=== PATIENT | male | born 1970 | race Hispanic/Latino ===

== ENCOUNTER 2016-11-23 12:41 | Emergency (ER) | payer MEDICAID ==
--- NOTE | 2016-11-23 12:50 | ED.REPORT ---
HPI-General Illness Date of Service Nov 23, 2016 ED Provider: Dr. Lamb. A 46 year old male presents to the ED from complaining of cough. Per nurse note, had concern for patient's swollen throat and twitching in the patient' s hands. Per patient's , the patient has had weakness and paralysis in upper extremities and face for the last 8 months that has been worked up by a doctor in [place], [place] at [facility]. Per , the patient is currently taking a new antibiotic, but no other medications. He does take calcium, omega 3, and D3 supplements. The patient's denies any pertinent surgical history and denies that the patient drinks or smokes. Nursing Notes Stated Complaint: COUGH Nursing Notes Reviewed: Yes Allergies: Coded Allergies: No Known Allergies (Unverified , 11/23/16) General Time Seen by MD: 12:50 Chief Complaint Cough Hx Obtained From: Spouse Unable to Obtain Hx: Patient condition Arrived By: Walk-in Onset Occurred: Onset unknown Symptom Duration: Duration unknown Recent Healthcare: No recent doctor visit Similar Sx Previous: No Past Medical History Past Medical History Patient has had weakness and paralysis in his upper extremities and face for the last 8 months. Past Surgical History none reported. Social History Alcohol Use: Denies alcohol use Review of Systems Full Review of Systems Respiratory: Reports: Non-productive cough Neurologic: Reports: Weakness (Weakness and paralysis in face and upper extremities. ) Complete sys rev & neg: except as marked. Physical Exam Vital Signs Vital Signs Date Time Temp Pulse Resp B/P Pulse Ox O2 Delivery O2 Flow Rate FiO2 11/23/16 15:57 71 16 111/93 97 Room Air 11/23/16 13:20 36.7 67 14 135/89 98 Room Air 11/23/16 12:54 36.7 67 14 135/89 98 Room Air Initial VS: Reviewed ENT: Mucous membranes moist Neck: Supple Respiratory: Breath sounds normal Cardiovascular: Regular rate & rhythm Abdomen / GI: Soft Extremities: Vascular intact Skin: Warm Neurologic: Alert General/Constitutional: Awake, Alert, No acute distress Prominent hypertrophied bilateral tonsils with erythema and prominent and swollen uvula. 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 Symmetric 5 out of 5 lower extremity motor strength. Interpretation & Diagnostics Lab Results Interpretation Result Diagram: 11/23/16 1316 11/23/16 1316 Test 11/23/16 13:16 White Blood Count 8.0th/mm3 (3.8-10.1) Red Blood Count 5.08mil/mm3 (4.40-5.80) Hemoglobin 15.9g/dL (13.8-17.2) Hematocrit 45.8% (41.0-50.0) Mean Corpuscular Volume 90.2fL (81-100) Mean Corpuscular Hemoglobin 31.3pg (27.0-35.0) Mean Corpuscular Hemoglobin Concent 34.7% (32.0-37.0) Red Cell Distribution Width 13.6% (12.3-15.4) Platelet Count 230bil/L (150-400) Sodium Level 137mEq/L (134-144) Potassium Level 4.1mEq/L (3.5-5.2) Chloride Level 101mEq/L (97-108) Carbon Dioxide Level 23mmol/L (18-29) Blood Urea Nitrogen 12mg/dL (6-24) Creatinine 0.66mg/dL (0.76-1.27) Estimat Glomerular Filtration Rate 138mL/min (>59) Glucose Level 96mg/dL (60-99) Calcium Level 9.3mg/dL (8.5-10.1) Total Bilirubin 1.2mg/dL (0.0-1.2) Aspartate Amino Transf (AST/SGOT) 22U/L (0-50) Alanine Aminotransferase (ALT/SGPT) 23U/L (0-44) Alkaline Phosphatase 108U/L (25-150) Total Protein 8.0g/dL (6.4-8.4) Albumin 4.5g/dL (3.4-5.0) Re-Eval/Medical Decision Med Decision/Clinical Course Unclear etiology of this patient's symptoms, attends were made to get records from the outside hospital although these did not show up in time. Patient was treated with both clindamycin and IV Solu-Medrol, Benadryl, Pepcid and admitted to improvement in symptoms. He was ambulatory independently to and from the bathroom and said that he felt better. He did continue to have prominent tonsils and uvula. The case was discussed with ear, nose, and throat who agreed to see him in clinic. Ultimately he was sent back to the ER for repeat evaluation. Source of Hx: Family (spouse) Time of Eval: 13:41 Re-Evaluation/Progress Note: Rechecked patient who states that they are feeling better. Patient's family has provided a business card for the doctor that the patient was seeing in [place]. Time of Eval: 14:44 Re-Evaluation/Progress Note: Rechecked patient. Time of Eval: 17:04 Re-Evaluation/Progress Note: Rechecked patient who is back from ENT and reports that their throat hurts and is itchy. Explained ENT's evaluation to the patient. The patient's family reports that he does not eat or drink very much, but he has had chicken soup and water today. The patient arrived from [facility] two weeks ago and he does not have a PCP yet. Consultation #1: Referral / Consult Name: Will Nettles MD Consulted With: ENT Call Returned at: 15:13 Textile Machine Operator: Will see patient Note: Discussed patient case with Dr. Nettles who agrees to see the patient in his office right away. Consultation #2: Referral / Consult Name: Will Nettles MD Call Returned at: 16:48 Note: Discussed patient case with Dr. Nettles who thinks that the patient has no obvious infection and that the patient's current condition is likely neurological and related to the patient's other issues. Dr. Nettles says that the patient needs to see an outpatient neurologist. The patient is being sent back to the ED right now. Counseled Regarding: Diagnosis, Lab results Discharge & Departure Primary Impression: Swelling of tonsil Disposition: Home Discharge Condition Condition: Stable Scribe Attestation Portions of this note were transcribed by Joel Baker. I, Dr. Lamb personally performed the history, physical exam and medical decision-making; I reviewed and confirmed the accuracy of the information in the transcribed note. Signed by: Rubén Gandara, 11/23/2016 1316. Nirmal Lamb DO Nov 23, 2016 12:50 Joel Baker Nov 23, 2016 13:07
[2016-11-23 12:54] VITALS: BP 135/89; PULSE 67; RESP 14; O2SAT 98
[2016-11-23] MEDS ORDERED: Dexamethasone 10 mg/mL Inj IVPUSH ONE (13:05)
[2016-11-23] MEDS ORDERED: 0.9% Sodium Chloride 1,000 ML IV ONE (13:05)
[2016-11-23] MEDS ORDERED: Famotidine Inj 20 MG in IV Premix 1 EACH IV ONE (13:05)
[2016-11-23 13:20] VITALS: BP 135/89; PULSE 67; RESP 14; O2SAT 98
[2016-11-23 13:27] LABS: Mean Corpuscular Hemoglobin 31.3 pg (27.0-35.0); Mean Corpuscular Volume 90.2 fL (81-100)
[2016-11-23] MEDS ORDERED: Clindamycin Inj 900 MG in IV Premix 1 EACH IV ONE (13:50)
--- NOTE | 2016-11-23 14:31 | DRSVH ---
PROCEDURE: CT NECK SOFT TISSUES WITH CONTRAST ([id number]) INDICATIONS: throat swelling TECHNIQUE: After the administration of intravenous contrast, 3.0 mm axial sections acquired from the sella to th e aortic arch. Additional oblique axial 3.0 mm sections acquired through the pharynx. 3 mm thick co dick reformats were generated. For radiation dose reduction, the following was used: automated exp osure control. COMPARISON: None. FINDINGS: Image quality: Excellent. Lymph nodes: No enlarged lymph nodes seen throughout the neck. Vessels: Visualized vasculature appears patent. Neck spaces: There is moderate narrowing of the lower oropharyngeal airway. There is prominence of t he adenoidal and tonsillar tissues. The oropharynx, nasopharynx, and pharynx a less demonstrate no mu cosal lesions. The vocal cords, false vocal cords, pyriform sinuses, epiglottis, vallecula, and tongu e base all appear normal. Extramucosal spaces appear unremarkable. Glands: The parotid and submandibular glands appear normal. Thyroid gland is within normal limits. Miscellaneous: Visualized brain and orbits appear normal. Lung apices appear clear. Superficial so ft tissues appear normal. 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 No suspicious bony lesions. Moderate left and mild right maxillary sinus because of thickening. IMPRESSION: 1. Lower oropharyngeal airway narrowing associated with prominence of the adenoidal and tonsillar tis sues. Direct visualization is recommended to exclude the less likely possibility of neoplasm. 2. No evidence of abscess. 3. 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 Dictated by: Rabia Jay M.D. on 11/23/2016 at 14:21 Approved by: Rabia Jay M.D. on 11/23/2016 at 14:30
--- NOTE | 2016-11-23 15:04 | DRSVH ---
PROCEDURE: X-RAY CHEST ONE VIEW, PORTABLE ([id number]) INDICATIONS: cough TECHNIQUE: One view of the chest was acquired. COMPARISON: [facility], CT, CT NECK SOFT TISSUE W CON, 11/23/2016, 14:09. FINDINGS: Surgical changes and devices: None. Lungs and pleura: No pleural effusions or pneumothorax. Lungs are clear. Mediastinum: Mediastinal contours appear normal. Heart size is normal. Bones and chest wall: No suspicious bony lesions. Overlying soft tissues appear unremarkable. IMPRESSION: No acute cardiopulmonary disease. Dictated by: Haley Jackson M.D. on 11/23/2016 at 15:01 Approved by: Haley Jackson M.D. on 11/23/2016 at 15:02
[2016-11-23 15:57] VITALS: BP 111/93; PULSE 71; RESP 16; O2SAT 97
== END 2016-11-23 16:20 | disposition home or self-care (01) ==
LOC: SED 12:45
DX: J35.1 Hypertrophy of tonsils (principal)
CPT/HCPCS: 36415; 70491; 71010; 80053; 85027; 94799; 96361; 96365; 96375; 99285; J1100; J1200; J3490; J7030; Q9967

== ENCOUNTER 2016-11-23 17:20 | Emergency (ER) | payer MEDICAID ==
[~2016-11-23] VITALS: Ht 162.6 cm; Wt 62.2 kg
[2016-11-23 17:39] VITALS: BP 121/86; RESP 18; O2SAT 97
--- NOTE | 2016-11-23 17:54 | ED.REPORT ---
HPI-General Illness Date of Service Nov 23, 2016 ED Provider: Dr. Lamb a 46 year old male presents to the ED from complaining of dysphagia onset 3 days ago. In the last 3 days, he has coughed whenever he eats food and does not have the strength to chew or swallow food. For several months, the patient has felt a choking sensation whenever they lay flat. For the last 8 months, the patient has had progressive neurological weakness that has been evaluated by a doctor in [place], [place]. The patient and their family moved to the area 2 weeks ago and the patient does not yet have a regular doctor. Nursing Notes Stated Complaint: SORE THROAT Chief Complaint: ENT & Mouth Nursing Notes Reviewed: Yes Allergies: Coded Allergies: No Known Allergies (Unverified , 11/23/16) General Time Seen by MD: 17:53 Chief Complaint Other (Dysphagia) Hx Obtained From: Patient, Other family... Arrived By: Walk-in Sudden in Onset?: Yes Onset Occurred: 3 days ago Symptom Duration: Since onset Recent Healthcare: No recent doctor visit Similar Sx Previous: No Past Medical History Past Medical History Patient has had weakness and paralysis in his upper extremities and face for the last 8 months. Past Surgical History none reported. Social History Alcohol Use: Denies alcohol use Review of Systems Dysphagia. Full Review of Systems Respiratory: Reports: Non-productive cough (when patient eats.) Neurologic: Reports: Weakness Complete sys rev & neg: except as marked. Physical Exam Vital Signs Vital Signs Date Time Temp Pulse Resp B/P Pulse Ox O2 Delivery O2 Flow Rate FiO2 11/23/16 17:39 36.8 90 18 121/86 97 Room Air Initial VS: Reviewed General/Constitutional: Awake, Alert, No acute distress Prominent hypertrophied bilateral tonsils with erythema and prominent and swollen uvula. 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 Symmetric 5 out of 5 lower extremity motor strength. Interpretation & Diagnostics Interpretation & Diagnostics: PROCEDURE: CT NECK SOFT TISSUES WITH CONTRAST ([id number]) IMPRESSION: 1. Lower oropharyngeal airway narrowing associated with prominence of the adenoidal and tonsillar tissues. Direct visualization is recommended to exclude the less likely possibility of neoplasm. 2. No evidence of abscess. 3. 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 Dictated by: Rabia Jay M.D. on 11/23/2016 at 14:21 Approved by: Rabia Jay M.D. on 11/23/2016 at 14:30 X-Ray Chest Interpretation Chest Xray Interpretation: IMPRESSION: No acute cardiopulmonary disease. Dictated by: Haley Jackson M.D. on 11/23/2016 at 15:01 Approved by: Haley Jackson M.D. on 11/23/2016 at 15:02 View: Portable, 1 view Interpretation / Wet Read by: Interpret - Radiologist Re-Eval/Medical Decision Med Decision/Clinical Course Essentially this patient returns from the ENT office and after greater and more detailed interviewing with the family and repeated attempts to get a clear story, this patient has in the last 3 days developed choking and difficulty with eating and drinking, reportedly this is dramatically different than the underlying baseline 8 months of progressive weakness that he has had. Out side records from [place] have a tentative diagnosis of multiple sclerosis though this is unclear. Chest x-ray from earlier in the day was negative for obvious aspiration. Labs were unremarkable. Patient has a healthy with inspiratory force and forced vital capacity on eval in the ER. He does not appear to be any respiratory distress at this time. Currently this patient is awaiting probable transfer to [facility] for further neurologic evaluation. Source of Hx: Old records Summary of Info: Ultimately, obtained records from [facility], patient has an MRI of the brain which reportedly is suggestive of multiple sclerosis, negative West Nile antibody, normal CD4 count, also noted to have CBC, metabolic panel, sedimentation rate essentially normal. Based on the history of present illness from the admission in July 2016, patient had a similar presentation to today. Time of Eval: 18:40 Re-Evaluation/Progress Note: Patient unable to lie flat due to choking in order to obtain MRI Time of Eval: 19:09 Re-Evaluation/Progress Note: Seen by Respiratory Therapy NIF -35 FVC 2.8L Consultation : Referral / Consult Name: Mary Peng MD Call Returned at: 18:44 Rn Transition: Agrees with eval, Agrees with plan Note: Discussed patient case with Dr. Peng who initially recommends MRI w/ wo contrast of brain. Ultimately after callback and more discussion regarding patient's inability to lie flat due to choking, will try to transfer to [facility]. Does not recommend IV steroids at this time. Discharge & Departure Shift Change Sign-Out Patient Care Transferred: Yes Discussed Complaint(s): Yes Laboratory Evaluation: Lab evaluation discussed Imaging Studies: Ordered, not yet done Input from Consult: await transfer to [facility] Primary Impression: Dysphagia Referrals: NOPKATALINA (PCP) Care Transferred to: [facility] Transferred at: 19:42 Scribe Attestation Portions of this note were transcribed by Joel Baker. I, Dr. Lamb personally performed the history, physical exam and medical decision-making; I reviewed and confirmed the accuracy of the information in the transcribed note. Signed by: Rubén Gandara, 11/23/2016 0296. copies to: Nirmal Dwyer DO Nov 23, 2016 17:54 Joel Baker Nov 23, 2016 18:49
[2016-11-23 21:27] VITALS: BP 124/82; PULSE 86; RESP 16; O2SAT 97
== END 2016-11-23 21:29 | disposition short-term general hospital (02) ==
LOC: SED 17:20
DX: R13.10 Dysphagia, unspecified (principal); R09.89 Other specified symptoms and signs involving the circulatory and respiratory systems; R05 Cough

== ENCOUNTER 2017-02-11 21:31 | Emergency (ER) | payer MEDICAID ==
[~2017-02-11] VITALS: Ht 152.4 cm; Wt 68.2 kg
[2017-02-11 21:46] VITALS: BP 140/96; PULSE 92; RESP 18; O2SAT 96
[2017-02-11 22:30] LABS: BASOPHILS % (AUTO) 0.9 % (0-3); EOSINOPHILS % (AUTO) 6.5 % (0-5); MONOCYTES % (AUTO) 11.8 % (4-12); Mean Corpuscular Hemoglobin 31.7 pg (27.0-35.0); Mean Corpuscular Volume 94.1 fL (81-100); Platelet Count 253 bil/L (150-400)
[2017-02-11 22:48] LABS: Magnesium 2.2 mg/dL (1.6-2.6)
[2017-02-11] MEDS ORDERED: 0.9% Sodium Chloride 1,000 ML IV ONE (23:59)
[2017-02-12] MEDS ORDERED: HYDROmorphone 0.5 mg/0.5 mL iSecure Syringe IVPUSH PRN
[2017-02-12 00:54] LABS: INR 0.91 ratio
[2017-02-12 00:55] LABS: APPEARANCE,URINE CLEAR (CLEAR,HAZY); COLOR,URINE YELLOW (YELLOW)
[2017-02-12 00:56] LABS: OCCULT BLOOD,URINE NEGATIVE (NEGATIVE); UROBILINOGEN,URINE NORMAL (NORMAL)
--- NOTE | 2017-02-12 01:06 | ED.REPORT ---
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 The pt has been urinating only small amounts for three days and has not been able to defecate since that time. This is accompanied by dysuria and diffuse abdominal pain radiating into his back that began today. The pt denies fever, chills, nausea, vomiting, or reduced appetite or fluid consumption. The pt has never experienced these symptoms before. The pt was admitted to [facility] from 11/23/2016 to 12/03/2016 and discharged a diagnosis of ALS and a feeding tube. There have been no complications with the feeding tube since this time. Nursing Notes Stated Complaint: PROBLEMS GOING TO THE BATHROOM/HAS FEEDING TUBE Chief Complaint: Male Abdominal Pain Nursing Notes Reviewed: Yes Allergies: Coded Allergies: No Known Allergies (Unverified , 02/11/17) Scheduled PRN Magnesium Citrate (Citrate of Magnesia) 300 Ml Solution 100 ML G-TUBE DAILY PRN PRN For Constipation General Time Seen by MD: 23:05 Chief Complaint Other (Constipation/difficulty urinating) Hx Obtained From: Patient, Son, Traffic Operations Manager Arrived By: Walk-in Sudden in Onset?: No Onset Occurred: 3 days ago Symptom Duration: Since onset Recent Healthcare: Recent doctor visit, Recent hospitalization Similar Sx Previous: No Past Medical History Past Medical History Patient has had weakness and paralysis in his upper extremities and face for the last 8 months. ALS diagnosis 11/2016 Past Surgical History none reported. Smoking History Unknown if Ever Smoker Social History Alcohol Use: Denies alcohol use Other Social History: Good social support Ambulatory Status Independent Review of Systems difficulty urinating denies reduced food or fluid intake Full Review of Systems Constitutional: Denies: Chills, Fever Respiratory: Denies: Shortness of breath GI: Reports: Abdominal pain, Constipation, Denies: Nausea, Vomiting Male: Reports Dysuria Musculoskeletal: Reports: Back pain (radiating from abdomen), Denies: Neck pain Skin: Denies Rash Complete sys rev & neg: except as marked. Physical Exam Constitutional: Well-developed, well-nourished. Not diaphoretic. Head: Normocephalic and atraumatic. Mouth/Throat: Oropharynx is clear and moist. No oropharyngeal exudate. Eyes: EOM are normal. Pupils are equal, round, and reactive to light. Neck: Supple, no tracheal deviation. Cardiovascular: Normal rate, regular rhythm. Equal and intact distal pulses throughout. Pulmonary/Chest: Effort normal and breath sounds normal. No respiratory distress. Abdominal: Soft. No distension. Diffuse abdominal tenderness to palpation with no rebound or guarding. Bowel sounds present. Musculoskeletal: Range of motion grossly intact, moving all extremities. No edema or tenderness appreciated. Neurological: AOx3. Grossly nonfocal exam. 3/5 strength in bilateral upper extremities. Sensation intact. Skin: Warm and dry, no rashes or pallor appreciated. Psychiatric: Appropriate mood and affect. Behavior appears normal. Vital Signs Vital Signs Date Time Temp Pulse Resp B/P Pulse Ox O2 Delivery O2 Flow Rate FiO2 02/12/17 02:17 82 16 02/11/17 21:46 36.6 92 18 140/96 96 Room Air Initial VS: Reviewed Interpretation & Diagnostics Lab Results Interpretation Result Diagram: 02/11/17 2216 02/11/17 2216 Test 02/11/17 22:16 02/11/17 22:25 02/12/17 00:35 White Blood Count 6.5th/mm3 (3.8-10.1) Red Blood Count 4.89mil/mm3 (4.40-5.80) Hemoglobin 15.5g/dL (13.8-17.2) Hematocrit 46.0% (41.0-50.0) Mean Corpuscular Volume 94.1fL (81-100) Mean Corpuscular Hemoglobin 31.7pg (27.0-35.0) Mean Corpuscular Hemoglobin Concent 33.7% (32.0-37.0) Red Cell Distribution Width 13.4% (12.3-15.4) Platelet Count 253bil/L (150-400) Neutrophils (%) (Auto) 54.0% (40-74) Lymphocytes (%) (Auto) 26.5% (14-46) Monocytes (%) (Auto) 11.8% (4-12) Eosinophils (%) (Auto) 6.5% (0-5) Basophils (%) (Auto) 0.9% (0-3) Prothrombin Time 9.7sec (8.1-12.5) Prothromb Time International Ratio 0.91ratio Sodium Level 138mEq/L (134-144) Potassium Level 4.6mEq/L (3.5-5.2) Chloride Level 99mEq/L (97-108) Carbon Dioxide Level 24mmol/L (18-29) Blood Urea Nitrogen 20mg/dL (6-24) Creatinine 0.52mg/dL (0.76-1.27) Estimat Glomerular Filtration Rate 182mL/min (>59) Glucose Level 126mg/dL (60-99) Calcium Level 10.0mg/dL (8.5-10.1) Magnesium Level 2.2mg/dL (1.6-2.6) Total Bilirubin 0.7mg/dL (0.0-1.2) Aspartate Amino Transf (AST/SGOT) 41U/L (0-50) Alanine Aminotransferase (ALT/SGPT) 37U/L (0-44) Alkaline Phosphatase 128U/L (25-150) Total Protein 8.4g/dL (6.4-8.4) Albumin 4.3g/dL (3.4-5.0) Lipase 36U/L (13-60) Urine Color Yellow (YELLOW) Urine Appearance Clear (CLEAR,HAZY) Urine pH 7.0 (5.0-8.0) Urine Specific [place] <1.005 (1.003-1.035) Urine Protein Negativemg/dL (NEG,TRACE) Urine Glucose (UA) Negativemg/dL (NEGATIVE) Urine Ketones Negativemg/dL (NEGATIVE) Urine Occult Blood Negative (NEGATIVE) Urine Nitrite Negative (NEGATIVE) Urine Bilirubin Negative (NEGATIVE) Urine Urobilinogen Normalmg/dL (NORMAL) Urine Leukocyte Esterase Negative (NEGATIVE) Urine RBC 0-2/hpf (0-2) Urine WBC 0-5/hpf (0-5) Urine Epithelial Cells Few/hpf (NONE-MOD) Urine Crystals None seen (NONE SEEN) Urine Bacteria Few/hpf (NONE-FEW) Urine Hyaline Casts None/lpf (NONE) Urine Granular Casts None seen (NONE SEEN) Urine Waxy Casts None seen (NONE SEEN) Urine Red Blood Cell Casts None seen (NONE SEEN) Urine White Blood Cell Casts None seen (NONE SEEN) Urine Mucus None seen (None Seen) Urine Trichomonas None seen (NONE SEEN) Urine Yeast None (NONE SEEN) Urinalysis Comment None Urine Culture Reflexed Not indicated Hold Urine Received (Received) Lactic Acid Level 1.7mmol/L (0.4-2.0) CT Abd / Pelvis Interpretation CONCLUSION: 1. Normal-caliber appendix. No free air, bowel obstruction, or gross intestinal inflammation. 2. Moderate fecal debris throughout the colon with rectosigmoid stool ball, query constipation. Interpretation / Wet Read by: Interpret - Radiologist Re-Eval/Medical Decision Med Decision/Clinical Course 46M w/ hx of ALS p/w abdominal pain, constipation over the past several days. Has been urinating somewhat less, though well hydrated and grossly normal UA here. CT a/p w/ no evidence of acute abnl, though does have moderate stool burden. Given mag citrate through GT w/ no issue. Feeds have been fine. Plan d/c w/ PCP f/u tomorrow for reassessment. Rx for mag citrate given. Family agreeable to plan, no further questions. Careful return precautions discussed. Source of Hx: Old records Time of Eval: 02:06 Re-Evaluation/Progress Note: Pt rechecked, who is resting comfortably. CT results, diagnosis and the plan for discharge are discussed. The pt understands and agrees with the plan. All questions are addressed at this time. Counseled Regarding: Diagnosis, Lab results, Need for follow-up, When/why to return to ED Discharge & Departure Primary Impression: Abdominal pain Abdominal location: generalized Qualified Code: R10.84 - Generalized abdominal pain Additional Impression: Constipation Constipation type: unspecified constipation type Qualified Code: K59.00 - Constipation, unspecified Disposition: Home Discharge Condition All VS Reviewed: Yes Condition: Stable Patient Instructions: Acute Abdominal Pain (ED), Constipation (ED) Additional Instructions: Your CT scan indicates that you are constipated. Follow up with your primary care physician tomorrow for further evaluation. Take 100 mL of magnesium citrate once per day and discuss a regimen with your primary care physician in follow up. Return to the emergency department if you develop any new or worsening symptoms. Thank you for allowing us to be part of your care. El TC indica que usted est estreido. Seguimiento con holman mdico de atencin primaria maana para evaluacin adicional. Jose 100 mL de citrato de magnesio sarath vez al da y discutir un rgimen con holman mdico de atencin primaria en siga para arriba. Volver al servicio de urgencias si presenta cualquier sntoma nuevo o que empeora. Ramakrishna por permitirnos ser parte de holman atencin. Referrals: Loly Gray MD (PCP) Scribe Attestation Portions of this note were transcribed by Lula Mcghee. I, Dr. Carmichael personally performed the history, physical exam and medical decision-making; I reviewed and confirmed the accuracy of the information in the transcribed note. Signed by: Rubén Oliva, 02/12/17 and 0208. copies to: Loly Gray MD, William B MD Feb 12, 2017 01:06 LULA MCGHEE Feb 12, 2017 01:13
[2017-02-12] MEDS ORDERED: Docusate Sodium 10 mg/mL 10 mL Liquid PO ONE (01:15)
[2017-02-12] MEDS ORDERED: MAGN300S G-TUBE (02:03)
[2017-02-12 02:17] VITALS: PULSE 82; RESP 16
--- NOTE | 2017-02-12 07:56 | DRSVH ---
PROCEDURE: CT ABDOMEN AND PELVIS WITH CONTRAST ([id number]) INDICATIONS: abdominal pain TECHNIQUE: After the administration of intravenous contrast, 5 mm thick sections acquired from the diaphragm to the symphysis. 5 mm coronal and sagittal reformats were acquired. For radiation dose reduction, the following was used: automated exposure control, adjustment of mA and/or kV according to patient siz e. COMPARISON: None. FINDINGS: Image quality: Excellent. ABDOMEN: Lung bases: Atelectasis noted in the lung bases. Heart size is normal. Solid organs: Liver and spleen are normal in size and enhancement. Diffuse fatty infiltration of the liver. Gallbladder is within normal limits. Biliary system is non dilated. Pancreas enhances ilana lly. No adrenal nodules. Kidneys demonstrate normal size and enhancement, without hydronephrosis. Peritoneum and bowel: Percutaneous gastrostomy tube. Bowel loops demonstrate normal wall thickness a nd caliber. Moderate amount stool noted in the right colon, transverse colon and the rectal wall. No free fluid or air. The appendix is normal. Nodes and vessels: No retroperitoneal or mesenteric adenopathy by size criteria. Aorta and inferior vena cava are normal in size. Miscellaneous: A small fat containing umbilical hernia is noted. PELVIS: Genitourinary: Bladder wall thickness is normal. Miscellaneous: No inguinal hernias or adenopathy. Bones: No suspicious bony lesions. No vertebral body compression fractures. Spine degenerative disc disease and facet arthropathy. IMPRESSION: 1. Moderate fecal loading scattered throughout the colon. Please correlate with clinical data. 2. The appendix is normal. 3. No free fluid or air. 4. No dilated loops of bowel. Dictated by: Viola Woody MD, PhD on 02/12/2017 at 7:48 Approved by: Viola Woody MD, PhD on 02/12/2017 at 7:55
== END 2017-02-12 02:17 | disposition home or self-care (01) ==
LOC: SED 21:31
DX: R10.84 Generalized abdominal pain (principal); K59.00 Constipation, unspecified; R39.198 Other difficulties with micturition; G12.21 Amyotrophic lateral sclerosis
CPT/HCPCS: 36415; 74177; 80053; 81000; 83605; 83690; 83735; 85025; 85610; 96374; 99285; J1170; J7030; Q9967